=== PATIENT | female | born 1935 | race Caucasian/White ===

== ENCOUNTER 2016-09-20 20:54 | Emergency (ER) | payer MEDICARE, OTHER | END 2016-09-20 21:42 | disposition home or self-care (01) | LOC: ER1 20:54 | DX: I83.92 Asymptomatic varicose veins of left lower extremity (principal); I48.91 Unspecified atrial fibrillation; Z88.5 Allergy status to narcotic agent; Z79.01 Long term (current) use of anticoagulants; Z79.899 Other long term (current) drug therapy | CPT/HCPCS: 99283 ==

== ENCOUNTER 2020-09-25 11:28 | Emergency (ER) | payer MEDICARE, OTHER ==
[~2020-09-25 11:28] MED LIST: AUGMENTIN 875-1 EACH PO; BACTROBAN OINT22 GM EXT; NORCO 5-325 TA1 EACH PO
[2020-09-25] MEDS ORDERED: BACTROBAN OINT22 GM EXT (12:58)
[2020-09-25] MEDS ORDERED: AUGMENTIN 875-1 EACH PO (12:58)
== END 2020-09-25 13:30 | disposition home or self-care (01) ==
LOC: ER1 11:28
DX: S61.412A Laceration without foreign body of left hand, initial encounter (principal); E11.9 Type 2 diabetes mellitus without complications; W55.01XA Bitten by cat, initial encounter; Y92.009 Unspecified place in unspecified non-institutional (private) residence as the place of occurrence of the external cause
CPT/HCPCS: 12001; 73130; 99283

== ENCOUNTER 2020-09-28 09:54 | Emergency (ER) | payer MEDICARE, OTHER ==
[2020-09-28 11:56] LABS: HEMOGLOBIN 15.6 gm/dl (12.3-15.3); RED BLOOD COUNT 4.96 M/UL (4.00-5.10)
[2020-09-28 12:19] LABS: BUN/CREATININE RATIO 16 (0-10)
[2020-09-28] MEDS ORDERED: FLAGYL500 MG PO (13:25)
[2020-09-28] MEDS ORDERED: DOXYCYCLINE MO100 MG PO (13:25)
== END 2020-09-28 13:55 | disposition home or self-care (01) ==
LOC: ER1 09:54
PROVIDERS: Nurse Practitioner
DX: R19.7 Diarrhea, unspecified (principal); S61.452D Open bite of left hand, subsequent encounter; M06.9 Rheumatoid arthritis, unspecified; I10 Essential (primary) hypertension; I48.91 Unspecified atrial fibrillation; Z90.710 Acquired absence of both cervix and uterus; Z79.899 Other long term (current) drug therapy; W55.01XD Bitten by cat, subsequent encounter
CPT/HCPCS: 80053; 81001; 82272; 83605; 83690; 85025; 99284; J7040

== ENCOUNTER 2021-04-24 23:39 | Emergency (ER) | payer MEDICARE, OTHER ==
[~2021-04-24 23:39] MED LIST changes: +DOXYCYCLINE MO100 MG PO; +FLAGYL500 MG PO
[2021-04-25 00:21] LABS: HEMOGLOBIN 13.7 gm/dl (12.3-15.3)
== END 2021-04-25 07:41 | disposition home or self-care (01) ==
LOC: ER1 23:39
PROVIDERS: Physician Assistant
DX: R04.0 Epistaxis (principal); I48.91 Unspecified atrial fibrillation; I10 Essential (primary) hypertension; Z79.01 Long term (current) use of anticoagulants; Z90.49 Acquired absence of other specified parts of digestive tract
CPT/HCPCS: 30903; 85014; 85018; 85049; 85610; 85730; 99283; C9046

== ENCOUNTER 2021-04-25 16:49 | Emergency (ER) | payer MEDICARE, OTHER | END 2021-04-25 17:21 | disposition left against medical advice (07) | LOC: ER1 16:49 | DX: Z53.21 Procedure and treatment not carried out due to patient leaving prior to being seen by health care provider (principal) ==

== ENCOUNTER → 2021-06-20 | Outpatient (CLI) | payer MEDICARE, OTHER | LOC: KOH-I 14:06 | DX: M25.511 Pain in right shoulder (principal); M54.2 Cervicalgia; M47.812 Spondylosis without myelopathy or radiculopathy, cervical region; M48.02 Spinal stenosis, cervical region | CPT/HCPCS: 72040; 73030 ==

== ENCOUNTER → 2021-07-11 | Outpatient (CLI) | payer MEDICARE, OTHER | LOC: KOH-I 07-05 11:15 | DX: G95.89 Other specified diseases of spinal cord (principal); M50.321 Other cervical disc degeneration at C4-C5 level; M25.78 Osteophyte, vertebrae | CPT/HCPCS: 72141 ==

== ENCOUNTER 2022-02-04 16:01 | Emergency (ER) | payer MEDICARE, OTHER ==
[2022-02-04] MEDS ORDERED: LOPERAMIDE2 M1 PO (19:03)
== END 2022-02-04 18:10 | disposition home or self-care (01) ==
LOC: ER1 16:01
DX: S01.81XA Laceration without foreign body of other part of head, initial encounter (principal); W01.0XXA Fall on same level from slipping, tripping and stumbling without subsequent striking against object, initial encounter; Y92.009 Unspecified place in unspecified non-institutional (private) residence as the place of occurrence of the external cause
CPT/HCPCS: 12013; 70450; 70486; 72125; 99283